=== PATIENT | female | born 1995 | race African-American/Black ===

== ENCOUNTER 2018-03-03 22:49 | Emergency (ER) | payer SELFPAY ==
[~2018-03-03] VITALS: Ht 170.2 cm; Wt 81.6 kg
[2018-03-03 23:05] VITALS: BP 141/64
[2018-03-03] MEDS ORDERED: BACITRACIN TOPICAL OINT 14GM TUBE. TP ONE (23:15)
[2018-03-03] MEDS ORDERED: ACETAMINOPHEN 325 MG TABLET. PO ONE (23:15)
--- NOTE | 2018-03-03 23:21 | PHYS DOC ---
Past Medical History Past Medical History: No Pertinent History Past Surgical History: No Surgical History Alcohol Use: None Drug Use: None Adult General Chief Complaint Chief Complaint: HAND PROBLEM HPI HPI Patient is a 22 year old female presenting with avulsion of acrylic nails last night Review of Systems Review of Systems Current Medications Current Medications Current Medications Medications (Trade) Dose Ordered Sig/Smita Start Time Stop Time Status Last Admin Dose Admin Acetaminophen (Tylenol) 650 mg 1X ONCE 03/03/18 23:15 03/03/18 23:16 DC Bacitracin 1 godwin 1X ONCE 03/03/18 23:15 03/03/18 23:16 DC Allergies Allergies Allergies Coded Allergies Type Severity Reaction Last Updated Verified No Known Drug Allergies 03/03/18 No Physical Exam Physical Exam Constitutional: Well developed, well nourished, no acute distress, non-toxic appearance. [] HENT: Normocephalic, atraumatic, bilateral external ears normal, oropharynx moist, no oral exudates, nose normal. [] Abdomen: B Back: No tenderness, no CVA tenderness. [] Extremities: 2 nails to have signs of recent avulsion no active bleeding no laceration Neurologic: Alert and oriented X 3, normal motor function, normal sensory function, no focal deficits noted. [] Psychologic: Affect normal, judgement normal, mood normal. [] Current Patient Data Vital Signs Vital Signs Date Time Temp Pulse Resp B/P (MAP) Pulse Ox O2 Delivery O2 Flow Rate FiO2 03/03/18 23:05 98.2 78 18 141/64 (89) 99 Room Air 98.2 EKG EKG [] Radiology/Procedures Radiology/Procedures [] Course & Med Decision Making Course & Med Decision Making Pertinent Labs and Imaging studies reviewed. (See chart for details) Nail acrylic avulsion Neosporin was applied recommending conservative local care no intervention warranted Dragon Disclaimer Dragon Disclaimer This electronic medical record was generated, in whole or in part, using a voice recognition dictation system. Departure Departure Impression: Primary Impression: Nail avulsion Disposition: 01 HOME, SELF-CARE Condition: STABLE Referrals: NO PCP (PCP) Patient Instructions: Nail Avulsion Injury JOSE LOVELL MD Mar 03, 2018 23:21
== END 2018-03-03 23:27 | disposition home or self-care (01) ==
LOC: ER 22:49
DX: S61.307A Unspecified open wound of left little finger with damage to nail, initial encounter (principal); S61.304A Unspecified open wound of right ring finger with damage to nail, initial encounter; Y04.0XXA Assault by unarmed brawl or fight, initial encounter; Y93.89 Activity, other specified; Y92.89 Other specified places as the place of occurrence of the external cause; Y99.8 Other external cause status
CPT/HCPCS: 99283

== ENCOUNTER 2019-01-16 12:11 | Emergency (ER) | payer MEDICAID ==
[~2019-01-16] VITALS: Ht 170.2 cm; Wt 81.6 kg
[2019-01-16 12:48] VITALS: BP 131/81
[2019-01-16 13:46] LABS: BILIRUBIN,URINE NEGATIVE (NEG); CLARITY,URINE CLEAR; COLOR,URINE YELLOW; NITRITE,URINE NEGATIVE (NEG); PROTEIN,URINE NEGATIVE (NEG-TRACE)
[2019-01-16 13:56] LABS: BACTERIA,URINE FEW /HPF (0-FEW); RBC,URINE RARE /HPF (0-2); SQUAMOUS EPITHELIAL CELL,UR FEW /LPF; WBC,URINE RARE /HPF (0-4)
[2019-01-16] MEDS ORDERED: METR500T PO (14:15)
--- NOTE | 2019-01-16 14:15 | PHYS DOC ---
Past Medical History Past Medical History: No Pertinent History Past Surgical History: No Surgical History Alcohol Use: None Drug Use: None Adult General Chief Complaint Chief Complaint: VAGINAL PROBLEM HPI HPI Patient is a 23 year old female without history of medical problem who presents with complaining of vaginal discharge. Patient complaining of vaginal discharge with itching for the last 3 days and states she thinks she has a vaginal yeast infection. Patient also complaining of few rash in external genital area after using a razor without discharge or pain or itching. Patient denies urinary symptoms, fever and chills, nausea and vomiting, abdominal pain, . Patient states she is not sexually active for the last 5 months and did not have history of or STD previously. Review of Systems Review of Systems Constitutional: Denies fever or chills [] Eyes: Denies change in visual acuity, redness, or eye pain [] HENT: Denies nasal congestion or sore throat [] Respiratory: Denies cough or shortness of breath [] Cardiovascular: No additional information not addressed in HPI [] GI: Denies abdominal pain, nausea, vomiting, bloody stools or diarrhea [] : Denies dysuria or hematuria [] Musculoskeletal: Denies back pain or joint pain [] Integument: Denies rash or skin lesions [] Neurologic: Denies headache, focal weakness or sensory changes [] Endocrine: Denies polyuria or polydipsia [] All other systems were reviewed and found to be within normal limits, except as documented in this note. Allergies Allergies Allergies Coded Allergies Type Severity Reaction Last Updated Verified No Known Drug Allergies 03/03/18 No Physical Exam Physical Exam Constitutional: Well developed, well nourished, mild distress, non-toxic appearance. [] HENT: Normocephalic, atraumatic. Eyes: PERRLA, EOMI, conjunctiva normal, no discharge. [] Neck: Normal range of motion, no tenderness, supple, no stridor. [] Cardiovascular:Heart rate regular rhythm, no murmur [] Lungs & Thorax: Bilateral breath sounds clear to auscultation [] Abdomen: Bowel sounds normal, soft, no tenderness, no masses, no pulsatile masses. 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 Skin: Warm, dry, no erythema, no rash. [] Back: No tenderness, no CVA tenderness. [] Extremities: No tenderness, no cyanosis, no clubbing, ROM intact, no edema. [] Neurologic: Alert and oriented X 3, no focal deficits noted. [] Psychologic: Affect normal, judgement normal, mood normal. [] Current Patient Data Vital Signs Vital Signs Date Time Temp Pulse Resp B/P (MAP) Pulse Ox O2 Delivery O2 Flow Rate FiO2 01/16/19 12:48 98.1 60 16 131/81 (98) 100 Room Air 98.1 Lab Values Laboratory Tests Test 01/16/19 13:25 Urine Collection Type Clean catch Urine Color Yellow Urine Clarity Clear Urine pH 6.0 Urine Specific [place] 1.025 Urine Protein Negative mg/dL (NEG-TRACE) Urine Glucose (UA) Negative mg/dL (NEG) Urine Ketones (Stick) Trace mg/dL (NEG) Urine Blood Negative (NEG) Urine Nitrite Negative (NEG) Urine Bilirubin Negative (NEG) Urine Urobilinogen Dipstick 1.0 mg/dL (0.2 mg/dL) Urine Leukocyte Esterase Negative (NEG) Urine RBC Rare /HPF (0-2) Urine WBC Rare /HPF (0-4) Urine Squamous Epithelial Cells Few /LPF Urine Bacteria Few /HPF (0-FEW) Urine Mucus Marked /LPF Microbiology 01/16/19 Wet Prep - Final, Complete EKG EKG [] Radiology/Procedures Radiology/Procedures [] Course & Med Decision Making Course & Med Decision Making Evaluation of patient in ER showed 23-year-old female patient with complaining of vaginal discharge. Wet mount showed bacterial vaginitis. Patient also had a few razor rash and was advised to not shave the genital area. I've spoken with the patient and/or caregivers. I've explained the patient's condition, diagnosis and treatment plan based on information available to me at this time. I've answered the patient's and/or caregivers questions and addressed any concerns. The patient and/or caregivers have a good understanding the patient's diagnosis, condition and treatment plan as can be expected at this point. Vital signs have been stabilized. The patient's condition is stable for discharge from the emergency department. The patient will pursue further outpatient evaluation with her primary care provider or other designated consulting physician as outlined in the discharge instructions. Patient and/or caregivers are agreeable to this plan of care and follow-up instructions have been explained in detail. The patient and/or caregivers have received these instructions in written format and expressed understanding of these discharge instructions. The patient and her caregivers are aware that if any significant change in condition or worsening of symptoms should prompt him to immediately return to this of the closest emergency department. If an emergent department is not readily available I would encourage him to call 911. Dragon Disclaimer Dragon Disclaimer This electronic medical record was generated, in whole or in part, using a voice recognition dictation system. Departure Departure Impression: Primary Impression: Bacterial vaginitis Disposition: HOME, SELF-CARE (at 1414) Condition: STABLE Referrals: NO PCP (PCP) Patient Instructions: Cervicitis, Vaginitis, [id number] Additional Instructions: Drink plenty of liquids Follow-up with your primary care physician in 3-5 days Return to ER if not getting better Scripts Metronidazole (FLAGYL) 500 Mg Tablet 1 TAB PO BID, #14 TAB Prov: ESTEPHANIA REGALADO MD 01/16/19 ESTEPHANIA REGALADO MD Jan 16, 2019 14:15
[2019-01-19 01:08] LABS: GC PROBE Negative (Negative)
== END 2019-01-16 14:26 | disposition home or self-care (01) ==
LOC: ER 12:11
DX: N76.0 Acute vaginitis (principal); B96.89 Other specified bacterial agents as the cause of diseases classified elsewhere
CPT/HCPCS: 81001; 87491; 87591; 99284; Q0111

== ENCOUNTER 2019-02-17 03:26 | Emergency (ER) | payer MEDICAID ==
[~2019-02-17] VITALS: Ht 170.2 cm; Wt 79.4 kg
[~2019-02-17 03:26] MED LIST: METR500T PO
[2019-02-17 03:37] VITALS: BP 132/62
[2019-02-17] MEDS ORDERED: AZIT250T PO (03:51)
[2019-02-17] MEDS ORDERED: ONDA4TAB12 PO (03:51)
--- NOTE | 2019-02-17 03:51 | PHYS DOC ---
Past Medical History Past Medical History: No Pertinent History Past Surgical History: No Surgical History Alcohol Use: None Drug Use: None Adult General Chief Complaint Chief Complaint: SORE THROAT HPI HPI is a 23-year-old female who presents with complaint of productive cough along with sore throat and nasal congestion for the last few days. Patient states that she is also had some nausea. She denies any chest pain or shortness breath. She also denies any fever. She states that her cough is been productive of green sputum. Patient states that nothing seems to be improving her symptoms.[] Review of Systems Review of Systems Constitutional: Denies fever or chills [] HENT: Positive congestion and sore throat [] Respiratory: Positive productive cough without shortness of breath [] Cardiovascular: No additional information not addressed in HPI [] GI: Denies abdominal pain, vomiting or diarrhea [] Integument: Denies rash or skin lesions [] Neurologic: Denies headache, focal weakness or sensory changes [] Allergies Allergies Allergies Coded Allergies Type Severity Reaction Last Updated Verified No Known Drug Allergies 03/03/18 No Physical Exam Physical Exam Constitutional: Well developed, well nourished, no acute distress, non-toxic appearance. [] HENT: Normocephalic, atraumatic, bilateral external ears normal, oropharynx moist, no oral exudates, nose normal. [] Cardiovascular:Heart rate regular rhythm, no murmur [] Lungs & Thorax: Bilateral breath sounds clear to auscultation [] Abdomen: Bowel sounds normal, soft, no tenderness. [] Neurologic: Alert and oriented X 3, no focal deficits noted. [] EKG EKG [] Radiology/Procedures Radiology/Procedures [] Course & Med Decision Making Course & Med Decision Making Pertinent Labs and Imaging studies reviewed. (See chart for details) [] Dragon Disclaimer Dragon Disclaimer This electronic medical record was generated, in whole or in part, using a voice recognition dictation system. Departure Departure Impression: Primary Impression: Acute bronchitis Disposition: 01 HOME, SELF-CARE Condition: STABLE Referrals: NO PCP (PCP) Patient Instructions: Acute Bronchitis Scripts Ondansetron (ONDANSETRON ODT) 4 Mg Tab.rapdis 1 TAB PO PRN Q6-8HRS PRN for NAUSEA, #15 TAB Prov: CEASAR ALVA Jr. DO 02/17/19 Azithromycin (ZITHROMAX) 250 Mg Tablet 1 PKG PO UD, #6 TAB Prov: CEASAR ALVA Jr. DO 02/17/19 Problem Qualifiers Primary Impression: Acute bronchitis Bronchitis organism: unspecified organism Qualified Codes: J20.9 - Acute bronchitis, unspecified CEASAR ALVA Jr. DO Feb 17, 2019 03:51
[2019-02-17] MEDS: AZITHROMYCIN 250 MG TABLET. PO ONE (04:05)
== END 2019-02-17 04:06 | disposition home or self-care (01) ==
LOC: ER 03:26
DX: J20.9 Acute bronchitis, unspecified (principal)
CPT/HCPCS: 99283; Q0144

== ENCOUNTER 2020-01-20 18:56 | Emergency (ER) | payer SELFPAY ==
[~2020-01-20] VITALS: Ht 170.2 cm; Wt 65.9 kg
[~2020-01-20 18:56] MED LIST changes: +AZIT250T PO; +ONDA4TAB12 PO
[2020-01-20 21:00] LABS: BILIRUBIN,URINE NEGATIVE (NEG); CLARITY,URINE CLEAR; COLOR,URINE YELLOW; NITRITE,URINE NEGATIVE (NEG); PROTEIN,URINE 30 mg/dL (NEG-TRACE); UROBILINOGEN,URINE 0.2 mg/dL (0.2 mg/dL)
[2020-01-20 21:05] LABS: BACTERIA,URINE 0 /HPF (0-FEW); RBC,URINE 0 /HPF (0-2); WBC,URINE RARE /HPF (0-4)
--- NOTE | 2020-01-20 21:28 | PHYS DOC ---
Past Medical History Past Medical History: No Pertinent History Past Surgical History: No Surgical History Smoking Status: Never Smoker Alcohol Use: None Drug Use: Marijuana General Adult EDM: Chief Complaint: SORE THROAT HPI: HPI: Patient is a 24 year old female who presents to the ED today complaining of o dorous vaginal discharge, symptoms began 4 days ago. Denies any concerns for STDs. She is also complaining of sore throat that began 2 days ago. Denies any fever, cough, congestion. Review of Systems: Review of Systems: Constitutional: Denies fever or chills. [] Eyes: Denies change in visual acuity. [] HENT: Reports sore throat. Denies nasal congestion Respiratory: Denies cough or shortness of breath. [] Cardiovascular: Denies chest pain or edema. [] GI: Reports abdominal pain vaginal discharge. Denies abdominal pain, nausea, vomiting, bloody stools or diarrhea. [] : Denies dysuria. [] Musculoskeletal: Denies back pain or joint pain. [] Integument: Denies rash. [] Neurologic: Denies headache, focal weakness or sensory changes. [] Psychiatric: Denies depression or anxiety. [] Heart Score: Risk Factors: Risk Factors: DM, Current or recent (<one month) smoker, HTN, HLP, family history of CAD, obesity. Risk Scores: Score 0 - 3: 2.5% MACE over next 6 weeks - Discharge Home Score 4 - 6: 20.3% MACE over next 6 weeks - Admit for Clinical Observation Score 7 - 10: 72.7% MACE over next 6 weeks - Early Invasive Strategies Allergies: Allergies: Allergies Coded Allergies Type Severity Reaction Last Updated Verified No Known Drug Allergies 03/03/18 No Physical Exam: PE: Constitutional: Well developed, well nourished, no acute distress, non-toxic appearance. [] HENT: Normocephalic, atraumatic, bilateral external ears normal, oropharynx moist, no oral exudates, nose normal. [] Midline uvula, posterior pharynx with small amount of erythema and trace exudate on the right side. +2 anterior cervical adenopathy Eyes: PERRLA, EOMI, conjunctiva normal, no discharge. [] Neck: Normal range of motion, no tenderness, supple, no stridor. [] Cardiovascular:Heart rate regular rhythm, no murmur [] Lungs & Thorax: Bilateral breath sounds clear to auscultation [] Abdomen: Bowel sounds normal, soft, no tenderness, no masses, no pulsatile masses. [] Pelvic exam Femoral pelvic appears normal, left, closed, no CMT, no drainage, small amount of white discharge in the vaginal vault Skin: Warm, dry, no erythema, no rash. [] Back: No tenderness, no CVA tenderness. [] Extremities: No tenderness, no cyanosis, no clubbing, ROM intact, no edema. [] Neurologic: Alert and oriented X 3, normal motor function, normal sensory function, no focal deficits noted. [] Psychologic: Affect normal, judgement normal, mood normal. [] Current Patient Data: Labs: Laboratory Tests Test 01/20/20 19:20 01/20/20 20:28 Urine Collection Type Unknown Urine Color Yellow Urine Clarity Clear Urine pH 6.0 (<5.0-8.0) Urine Specific [place] >=1.030 (1.000-1.030) Urine Protein 30 mg/dL (NEG-TRACE) Urine Glucose (UA) Negative mg/dL (NEG) Urine Ketones (Stick) Negative mg/dL (NEG) Urine Blood Negative (NEG) Urine Nitrite Negative (NEG) Urine Bilirubin Negative (NEG) Urine Urobilinogen Dipstick 0.2 mg/dL (0.2 mg/dL) Urine Leukocyte Esterase Negative (NEG) Urine RBC 0 /HPF (0-2) Urine WBC Rare /HPF (0-4) Urine Squamous Epithelial Cells Few /LPF Urine Bacteria 0 /HPF (0-FEW) Urine Mucus Mod /LPF POC Urine HCG, Qualitative Hcg negative (Negative) Microbiology 01/20/20 Wet Prep - Final, Complete Vital Signs: Vital Signs Date Time Temp Pulse Resp B/P (MAP) Pulse Ox O2 Delivery O2 Flow Rate FiO2 01/20/20 19:15 98.1 79 18 143/75 (97) 100 Room Air 98.1 EKG: EKG: [] Radiology/Procedures: Radiology/Procedures: [] Course & Med Decision Making: Course & Med Decision Making Pertinent Labs and Imaging studies reviewed. (See chart for details) This is a 24-year-old female patient presenting to the ED today with vaginal discharge for 4 days. Positive for BV. Discharged with Flagyl. Physical exam. Thought was consistent with tonsillitis. Given prescription for penicillin. Saltwater gargles also encouraged for her sore throat. Follow-up with PCP in 1 to 2 weeks Angus Disclaimer: Angus Disclaimer: This electronic medical record was generated, in whole or in part, using a voice recognition dictation system. Departure Departure Impression: Primary Impression: Acute tonsillitis Qualified Codes: J03.90 - Acute tonsillitis, unspecified Additional Impression: Bacterial vaginosis Disposition: 01 DC HOME SELF CARE/HOMELESS Condition: STABLE Referrals: NO PCP (PCP) follow up in 1-2 weeks with your doctor Patient Instructions: Bacterial Vaginosis, Tonsillitis Additional Instructions: You were evaluated in the emergency room for sore throat and vaginal discharge. You have bacterial vaginosis. We put you on antibiotics for tonsillitis. Follow-up with your own doctor in 1 to 2 weeks. Scripts Fluconazole (DIFLUCAN) 150 Mg Tablet 1 TAB PO ONCE, #1 TAB 1 Refill Take one today and repeat in 7 days Prov: MISSAEL FITCH APRN 01/20/20 Penicillin V Potassium (PENICILLIN V POTASSIUM) 500 Mg Tablet 1 TAB PO TID, #30 TAB Prov: MISSAEL FITCH APRN 01/20/20 Metronidazole (FLAGYL) 500 Mg Tablet 1 TAB PO BID, #14 TAB Prov: MISSAEL FITCH APRN 01/20/20 MISSAEL FITCH APRN Jan 20, 2020 21:28
[2020-01-20 21:30] VITALS: BP 129/79
[2020-01-20] MEDS ORDERED: METR500T PO (21:41)
[2020-01-20] MEDS ORDERED: PENI500T PO (21:41)
[2020-01-20] MEDS ORDERED: FLUC150T PO (21:41)
== END 2020-01-20 22:09 | disposition home or self-care (01) ==
LOC: ER 18:56
DX: J03.90 Acute tonsillitis, unspecified (principal); N76.0 Acute vaginitis; B96.89 Other specified bacterial agents as the cause of diseases classified elsewhere
CPT/HCPCS: 81001; 81025; 87070; 87491; 87591; 87880; 99285; Q0111

== ENCOUNTER 2021-02-01 09:28 | Emergency (ER) | payer OTHER ==
[~2021-02-01] VITALS: Ht 170.2 cm; Wt 79.5 kg
[~2021-02-01 09:28] MED LIST changes: +FLUC150T PO; +PENI500T PO
[2021-02-01 10:15] VITALS: BP 124/67
--- NOTE | 2021-02-01 10:36 | PHYS DOC ---
Past Medical History Past Medical History: No Pertinent History Past Surgical History: No Surgical History Smoking Status: Current Every Day Smoker Alcohol Use: None Drug Use: Marijuana General Adult EDM: Chief Complaint: PLEURISY HPI: HPI: Patient is a 25-year-old female that presents today with right chest wall pain. 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 Patient denies fever chills or shortness of air Review of Systems: Review of Systems: Constitutional: Denies fever or chills. [] Eyes: Denies change in visual acuity. [] HENT: Denies nasal congestion or sore throat. [] Respiratory: Right chest wall pain with inspiration Cardiovascular: Denies chest pain or edema. [] GI: Denies abdominal pain, nausea, vomiting, bloody stools or diarrhea. [] : Denies dysuria. [] Musculoskeletal: Denies back pain or joint pain. [] Integument: Denies rash. [] Neurologic: Denies headache, focal weakness or sensory changes. [] Endocrine: Denies polyuria or polydipsia. [] Lymphatic: Denies swollen glands. [] Psychiatric: Denies depression or anxiety. [] Heart Score: C/O Chest Pain: N/A Risk Factors: Risk Factors: DM, Current or recent (<one month) smoker, HTN, HLP, family hi story of CAD, obesity. Risk Scores: Score 0 - 3: 2.5% MACE over next 6 weeks - Discharge Home Score 4 - 6: 20.3% MACE over next 6 weeks - Admit for Clinical Observation Score 7 - 10: 72.7% MACE over next 6 weeks - Early Invasive Strategies Allergies: Allergies: Allergies Coded Allergies Type Severity Reaction Last Updated Verified No Known Drug Allergies 03/03/18 No Physical Exam: PE: Constitutional: Well developed, well nourished, no acute distress, non-toxic appearance. [] HENT: Normocephalic, atraumatic, bilateral external ears normal, oropharynx moist, no oral exudates, nose normal. [] Eyes: PERRLA, EOMI, conjunctiva normal, no discharge. [] Neck: Normal range of motion, no tenderness, supple, no stridor. [] Cardiovascular:Heart rate regular rhythm, no murmur [] Lungs & Thorax: Bilateral breath sounds clear to auscultation, pain with palpation over the right chest wall below the right breast, no contusions, abrasions, ecchymosis noted [] Abdomen: Bowel sounds normal, soft, no tenderness, no masses, no pulsatile masses. [] Skin: Warm, dry, no erythema, no rash. [] Back: No tenderness, no CVA tenderness. [] Extremities: No tenderness, no cyanosis, no clubbing, ROM intact, no edema. [] Neurologic: Alert and oriented X 3, normal motor function, normal sensory function, no focal deficits noted. [] Psychologic: Affect normal, judgement normal, mood normal. [] Current Patient Data: Labs: Laboratory Tests Test 02/01/21 10:15 POC Urine HCG, Qualitative Hcg negative (Negative) Vital Signs: Vital Signs Date Time Temp Pulse Resp B/P (MAP) Pulse Ox O2 Delivery O2 Flow Rate FiO2 02/01/21 10:15 98.7 68 18 124/67 (86) 99 Room Air 98.7 EKG: EKG: [] Radiology/Procedures: Radiology/Procedures: REASON: chest wall pain PROCEDURE: CHEST PA & LATERAL AP and Lateral Views of the Chest 02/01/2021 10:50 AM Indication: Reason: chest wall pain / Spl. Instructions: / History: Comparison: None Findings: There is no focal consolidation or infiltrate identified. The cardiomediastinal silhouette is within normal limits. There is no evidence of pneumothorax or pleural effusion. No acute osseous abnormalities are identified. Bilateral nipple piercings noted. Impression: No evidence of acute cardiopulmonary process. Electronically signed by: Papito Castaneda MD (02/01/2021 11:03 AM) [id number] [] Course & Med Decision Making: Course & Med Decision Making Pertinent Labs and Imaging studies reviewed. (See chart for details) [] Dragon Disclaimer: Dragon Disclaimer: This electronic medical record was generated, in whole or in part, using a voice recognition dictation system. Departure Departure Impression: Primary Impression: Costochondral chest pain Disposition: HOME / SELF CARE / HOMELESS Condition: STABLE Referrals: NO PCP (PCP) ANGELITA MAXWELL MD Patient Instructions: Costochondritis, [id number] Additional Instructions: Follow-up with your primary care physician in the next 5 to 7 days if pain is no better [id number] ibuprofen as labeled directed for the next 48 hours continuously and then take as needed Ice to that affected area 20 minutes on 3-4 times daily over the next 5 to 7 days EMELI MACDONALD APRN Feb 01, 2021 10:36
--- NOTE | 2021-02-01 11:05 | RAD ---
AP and Lateral Views of the Chest 02/01/2021 10:50 AM Indication: Reason: chest wall pain / Spl. Instructions: / History: Comparison: None Findings: There is no focal consolidation or infiltrate identified. The cardiomediastinal silhouette is within normal limits. There is no evidence of pneumothorax or pleural effusion. No acute osseous a bnormalities are identified. Bilateral nipple piercings noted. Impression: No evidence of acute cardiopulmonary process. Electronically signed by: Papito Castaneda MD (02/01/2021 11:03 AM) [id number]
== END 2021-02-01 11:40 | disposition home or self-care (01) ==
LOC: ER 09:28
DX: R07.1 Chest pain on breathing (principal); F17.200 Nicotine dependence, unspecified, uncomplicated
CPT/HCPCS: 71046; 81025; 99283